=== PATIENT | female | born 1980 | race Caucasian/White ===

== ENCOUNTER 2018-12-08 10:10 | Emergency (ER) | payer OTHER ==
[~2018-12-08] VITALS: Ht 157.5 cm; Wt 55.1 kg
[2018-12-08 13:44] VITALS: BP 140/105
== END 2018-12-08 13:44 | disposition home or self-care (01) ==
LOC: ED 10:10
DX: J11.1 Influenza due to unidentified influenza virus with other respiratory manifestations (principal); M54.6 Pain in thoracic spine